=== PATIENT | female | born 1935 | race Caucasian/White ===

== ENCOUNTER 2016-06-01 22:47 | Emergency (ER) | payer MEDICARE, MEDICAID ==
[~2016-06-01 22:47] MED LIST: ASP81TEC PO; ATEN50TA7 PO; CALC-83 PO; ERGO400C PO; FOS70 PO; FURO40TA PO; HYDR1TAB PO; Potassium PO
[2016-06-01 22:53] VITALS: BP 157/78; PULSE 72; RESP 20; O2SAT 98
--- NOTE | 2016-06-01 23:01 | ED.REPORT ---
HPI-Abd Pain F 40 and Over Date of Service Jun 01, 2016 ED Provider: Jules Thornton MD Patient is a 81 year old female who presents to the ED with left lower rib pain for the past 2-3 days. Patient reports associated pain with deep breath, but denies cough or shortness of breath. Her pain is worse with palpation to the area. She denies any strain or cough that caused her symptoms. Her family states that she falls frequently and does not typically remember doing so. Patient reports simply awaking from sleep with the pain. She reports mild nausea but denies vomiting. She denies abdominal pain. Though she denies heartburn, the family reports that the patient had also recently had acid reflux , going through a bottle of Tums in a single week. They also report not infrequent falls, which she apparently forgets about. Other than mild dementia , she is otherwise healthy and is not on any daily medications. Nursing Notes Stated Complaint: ABDOMINAL PAIN Chief Complaint: Female Abdominal Pain Nursing Notes Reviewed: Yes Allergies: Coded Allergies: Sulfa (Sulfonamide Antibiotics) (Verified Allergy, Severe, HIVES, 05/08/09) Scheduled ([Potassium]) 99 MG PO DAILY Alendronate-Expunged Drug, Do Not Renew! (Alendronate-Expunged Drug, Do Not Renew!) 70 Mg Tablet 70 MG PO weekly Aspirin-Expunged Drug, Do Not Renew! (Aspirin EC-Expunged Drug, Do Not Renew!) 81 Mg Tablet 81 MG PO DAILY Atenolol-Expunged Drug, Do Not Renew! (Atenolol-Expunged Drug, Do Not Renew!) 50 Mg Tablet 50 MG PO DAILY Calcium Carb/Vit D3/Minerals (Calcium 600+D Plus Minerals Tb) 1 Each Tablet 1 EACH PO DAILY Ergocalciferol-Expunged Drug, Do Not Renew! (Vitamin D-Expunged Drug, Do Not Renew!) 400 Unit Capsule 2,000 UNIT PO DAILY Furosemide-Expunged Drug, Do Not Renew! (Lasix-Expunged Drug, Do Not Renew!) 40 Mg Tablet 40 MG PO DAILY Hydrocod/APAP-Expunged, Do Not Renew! (VICODIN 5/500-Expunged Drug, Do Not Renew ) 1 Udtab Tablet 1-2 PO TIDP Scheduled PRN Ibuprofen (Ibuprofen) 400 Mg Tablet 400 MG PO QID PRN PRN For Pain General Time Seen by MD: 23:00 Chief Complaint Other (left lower chest pain) Hx Obtained From: Patient, Other family... Arrived By: Walk-in Sudden in Onset?: No Onset Occurred: 3 days ago Symptom Duration: Since onset Quality: Painful Severity: Current: Moderate Severity: Maximum: Moderate Recent Healthcare: No recent doctor visit, No recent hospitalization Similar Sx Previous: No Past Medical History Past Medical History healthy, not on daily medications arthritis Past Surgical History enterocele and rectocele repair, due to vaginal vault prolapse Reports: Appendectomy, Hysterectomy, Tonsillectomy Smoking History Former Smoker Social History Other Social History: Good social support, Local resident Ambulatory Status Independent Review of Systems + acid reflux Respiratory: Denies: Non-productive cough, Shortness of breath Cardiovascular: Reports: Chest pain GI: Reports: Nausea, Denies: Abdominal pain, Vomiting Complete sys rev & neg: except as marked. Physical Exam Vital Signs Vital Signs (First) Date Time Temp Pulse Resp B/P Pulse Ox O2 Delivery O2 Flow Rate FiO2 06/01/16 22:53 72 20 157/78 98 Room Air 06/02/16 02:30 36.4 Initial VS: Reviewed Head / Eyes: Atraumatic, Normocephalic, PERRL ENT: Conjunctiva normal, No scleral icterus Neck: Supple, Full range of motion Skin: Warm, Dry, No cyanosis Neurologic: Alert, Oriented, Nonfocal Psychiatric: Mood/affect normal, Behavior normal, Normal thought content General/Constitutional: Awake, Alert, No acute distress Respiratory / Chest: Breath sounds NL, Breath sounds = bilat, No respiratory distress, No rales, No rhonchi, No wheezing Chest Wall / Ribs: Positive: Chest tender lower L (at the rib cartiledge) Cardiovascular: Heart rate NL, Regular rhythm, No murmurs Abdomen: Soft, Non-tender, No guarding, No rebound Back: Painless range of motion Upper Extremity / MS: No swelling, No edema Lower Extremity / Pelvis / MS: No swelling, No edema Interpretation & Diagnostics Lab Results Interpretation Result Diagram: 06/01/16 2300 06/01/16 2300 Test 06/01/16 23:00 06/02/16 00:50 White Blood Count 5.7th/mm3 (3.8-10.1) Red Blood Count 3.97mil/mm3 (3.90-5.20) Hemoglobin 12.4g/dL (12.0-15.6) Hematocrit 38.0% (35.0-46.0) Mean Corpuscular Volume 95.7fL (81-100) Mean Corpuscular Hemoglobin 31.2pg (27.0-35.0) Mean Corpuscular Hemoglobin Concent 32.6% (32.0-37.0) Red Cell Distribution Width 13.8% (12.3-15.4) Platelet Count 209bil/L (150-400) Neutrophils (%) (Auto) 45.3% (40-74) Lymphocytes (%) (Auto) 37.0% (14-46) Monocytes (%) (Auto) 11.6% (4-12) Eosinophils (%) (Auto) 5.4% (0-5) Basophils (%) (Auto) 0.5% (0-3) Sodium Level 140mEq/L (134-144) Potassium Level 4.1mEq/L (3.5-5.2) Chloride Level 102mEq/L (97-108) Carbon Dioxide Level 27mmol/L (18-29) Blood Urea Nitrogen 12mg/dL (8-27) Creatinine 0.71mg/dL (0.57-1.00) Estimat Glomerular Filtration Rate 113mL/min (>59) Glucose Level 102mg/dL (60-99) Calcium Level 8.8mg/dL (8.5-10.1) Magnesium Level 2.0mg/dL (1.6-2.6) Total Bilirubin 0.2mg/dL (0.0-1.2) Aspartate Amino Transf (AST/SGOT) 18U/L (0-50) Alanine Aminotransferase (ALT/SGPT) 8U/L (0-32) Alkaline Phosphatase 72U/L (25-165) Total Protein 6.9g/dL (6.4-8.4) Albumin 3.7g/dL (3.4-5.0) Lipase 63U/L (13-60) Troponin T 0.010ug/L (0.0-0.011) ECG Interpretation Time: 23:16 Interpreted by: ED physician Normal ECG Interpretation: Normal ECG w/ rate of... (68), No acute ischemic changes Time: 01:30 Interpreted by: ED physician Normal ECG Interpretation: Normal ECG w/ rate of... (68) Repeat ECG: Repeat ECG unchanged X-Ray Chest Interpretation Chest Xray Interpretation: Impression: No acute cardiopulmonary process. View: Portable Interpretation / Wet Read by: Wet read ED physician Re-Eval/Medical Decision Med Decision/Clinical Course 7-year-old female with rib pain after possible fall. X-rays unremarkable. EKG is unremarkable. No indication of a serious pathology. Enzymes are negative 2 and EKG is stable. She is discharged in stable condition. Source of Hx: Old records Re-Evaluation/Progress #1: Time of Eval: 00:02 Re-Evaluation/Progress Note: Rechecked the patient to discuss the results of her chest x-ray, EKG, and labs this far. No acute problem identified. Will proceed with repeat Troponin, to rule out acute process. All questions were addressed. Re-Evaluation/Progress #2: Time of Eval: 02:13 Patient Status: Condition improved Re-Evaluation/Progress Note: Rechecked the patient, who was informed that her repeat troponin and EKG were negative. Symptoms are improved. Patient understands and agrees with the plan to be discharged home. Discharge instructions and follow-up discussed. All questions were addressed. Return to the ED warnings given. Counseled Regarding: Diagnosis, Lab results, Need for follow-up, When/why to return to ED Discharge & Departure Primary Impression: Non-cardiac chest pain Disposition: Home Discharge Condition All VS Reviewed: Yes Condition: Stable Patient Instructions: Costochondritis (ED) Additional Instructions: We have no evidence of cardiac source for this pain. It appears to be confined to the rib cartilages, and attached muscles. Follow-up with your doctor in the office. Extra strength Tylenol or ibuprofen as needed for discomfort. Return if any immediate issues. Referrals: Nohemi Lóepz MD (PCP) Scribe Attestation Portions of this note were transcribed by Amaris Sequeira. I, Dr. Thornton personally performed the history, physical exam and medical decision-making; I reviewed and confirmed the accuracy of the information in the transcribed note. Signed by: Ousmane Sol, 06/02/2016 0216 copies to: Nohemi López MD, Christopher W MD Jun 01, 2016 23:01 Amaris Sequeira Jun 01, 2016 23:18
[2016-06-01] MEDS ORDERED: Pantoprazole 4 mg/mL 10 mL Inj IVPUSH ONE (23:15)
[2016-06-01] MEDS ORDERED: Ketorolac 15 mg/mL Inj IVPUSH ONE (23:15)
[2016-06-01 23:22] LABS: BASOPHILS % (AUTO) 0.5 % (0-3); EOSINOPHILS % (AUTO) 5.4 % (0-5); MONOCYTES % (AUTO) 11.6 % (4-12); Mean Corpuscular Hemoglobin 31.2 pg (27.0-35.0); Mean Corpuscular Volume 95.7 fL (81-100); NEUTROPHILS % (AUTO) 45.3 % (40-74); Platelet Count 209 bil/L (150-400)
[2016-06-02] MEDS ORDERED: Ketorolac 15 mg/mL Inj IVPUSH ONE (00:55)
[2016-06-02] MEDS ORDERED: IBUP400T22 PO (02:11)
[2016-06-02 02:30] VITALS: BP 135/68; PULSE 65; RESP 20; O2SAT 93
--- NOTE | 2016-06-02 07:32 | DRSVH ---
PROCEDURE: X-RAY CHEST ONE VIEW, PORTABLE ([id number]) INDICATIONS: left chest pain TECHNIQUE: One view of the chest was acquired. COMPARISON: None. FINDINGS: Surgical changes and devices: None. Lungs and pleura: No pleural effusions or pneumothorax. Lungs are clear. Mediastinum: Mediastinal contours appear normal. Heart size is normal. Bones and chest wall: No suspicious bony lesions. Overlying soft tissues appear unremarkable. IMPRESSION: No acute process. Dictated by: Jessie Balbuena M.D. on 06/02/2016 at 7:30 Approved by: Jessie Balbuena M.D. on 06/02/2016 at 7:30
== END 2016-06-02 02:32 | disposition home or self-care (01) ==
LOC: SED 22:47
DX: R07.89 Other chest pain (principal); Z87.891 Personal history of nicotine dependence; Z90.49 Acquired absence of other specified parts of digestive tract; Z90.710 Acquired absence of both cervix and uterus; Z79.82 Long term (current) use of aspirin; Z88.2 Allergy status to sulfonamides
CPT/HCPCS: 36415; 71010; 80053; 83690; 83735; 84484; 85025; 93005; 96374; 96375; 96376; 99285; J1885